=== PATIENT | female | born 1955 | race Caucasian/White ===

== ENCOUNTER → 2017-09-19 14:49 | Outpatient (CLI) | payer BC, SELFPAY ==
[2017-09-19 16:01] LABS: AST(SGOT) 19 U/L (15-37); Alanine Aminotransfer ALT/SGPT 27 U/L (13-56); Albumin, Serum 3.7 g/dL (3.2-5.0); Alkaline Phosphatase 83 U/L (45-117); Anion Gap 7 (5-15); BUN 14 mg/dL (7-18); BUN/Creat Ratio 19.9 RATIO (10-20); Calcium,Total 8.8 mg/dL (8.5-10.1); Chloride 102 mmol/L (98-107); Cholesterol 268 mg/dL (200); EST Glomerular Filtration Rate 90 mL/min (>60); Est Glom Filt Rate - Afr Amer 109 mL/min (>60); Globulin 3.7 g/dL (2.2-4.2); Glucose 81 mg/dL (74-106); High Density Lipoprotein 56 mg/dL; Potassium 3.6 mmol/L (3.5-5.1); Protein, Total 7.4 g/dL (6.4-8.2); Sodium Level 139 mmol/L (136-145); Thyroid Stim Hormone (TSH) 4.16 uIU/mL (0.358-3.74); Triglycerides 163 mg/dL; Very Low Density Lipoprotein 33 mg/dL (5-40)
[2017-09-19 16:15] LABS: Vitamin D,25 Hydroxy 24.5 ng/mL (19.95-100.01)
== END ==
DX: E03.9 Hypothyroidism, unspecified (principal); E55.9 Vitamin D deficiency, unspecified; E78.5 Hyperlipidemia, unspecified
CPT/HCPCS: 36415; 80053; 80061; 82306; 84443

== ENCOUNTER → 2017-10-29 15:48 | Outpatient (CLI) | payer BC, SELFPAY | DX: R69 Illness, unspecified (principal) ==

== ENCOUNTER → 2017-11-16 11:21 | Outpatient (CLI) | payer BC, SELFPAY ==
[2017-11-16 13:28] LABS: AST(SGOT) 22 U/L (15-37); Alanine Aminotransfer ALT/SGPT 34 U/L (13-56); Albumin, Serum 3.6 g/dL (3.2-5.0); Alkaline Phosphatase 87 U/L (45-117); Anion Gap 9 (5-15); BUN 18 mg/dL (7-18); BUN/Creat Ratio 26.4 RATIO (10-20); Calcium,Total 8.7 mg/dL (8.5-10.1); Chloride 106 mmol/L (98-107); Cholesterol 166 mg/dL (200); Creatinine, Serum 0.68 mg/dL (0.55-1.02); EST Glomerular Filtration Rate 93 mL/min (>60); Est Glom Filt Rate - Afr Amer 113 mL/min (>60); Globulin 3.5 g/dL (2.2-4.2); Glucose 98 mg/dL (74-106); High Density Lipoprotein 37 mg/dL; Protein, Total 7.1 g/dL (6.4-8.2); Sodium Level 142 mmol/L (136-145); Thyroid Stim Hormone (TSH) 2.22 uIU/mL (0.358-3.74); Triglycerides 168 mg/dL; Very Low Density Lipoprotein 34 mg/dL (5-40)
== END ==
DX: Z00.00 Encounter for general adult medical examination without abnormal findings (principal)
CPT/HCPCS: 36415; 80053; 80061; 84443

== ENCOUNTER → 2018-01-26 07:38 | Outpatient (CLI) | payer BC, SELFPAY ==
--- NOTE | 2018-01-26 07:39 | BI_ITS ---
MAMMOGRAPHY - BILATERAL SCREENING REASON FOR EXAM: Female, 62 years old. Routine annual screening examination. PERTINENT HISTORY: Non-contributory. TECHNIQUE: Digital bilateral breast miguel (3D mammographic acquisition) in the CC and MLO projections. 2-D mediolateral oblique (MLO) and craniocaudad (CC) views of both breasts were obtained. CAD: Full Field Digital Mammography with Computer Added Detection was performed. COMPARISON: Comparison is made with prior study dated January 11, 2017 and January 11, 2016. FINDINGS: Breast Composition: The breasts are almost entirely fatty. There are no dominant masses or suspicious calcifications. Stable bilateral benign appearing axillary lymph nodes. No other significant abnormalities are identified. There has been no significant change since the prior study. BI/SCREENING MAMM (CAD), BILAT IMPRESSION: Stable bilateral screening mammogram. Yearly follow-up mammogram recommended. (A) ASSESSMENT CATEGORY: BIRADS Category 2: Benign. A letter regarding these results will be sent to the patient by the facility within 30 days. Approximately 10% of breast cancers are not detected by mammography. A normal mammogram should not delay biopsy of a clinically suspicious abnormality. [id number] Electronically Signed: Dony Olivo MD at 8:17 EDT Tel [phone], Service support ,
== END ==
DX: Z12.31 Encounter for screening mammogram for malignant neoplasm of breast (principal)
CPT/HCPCS: 77063; 77067

== ENCOUNTER → 2018-11-08 08:35 | Outpatient (CLI) | payer BC, SELFPAY ==
[2018-11-08 09:33] LABS: Absolute Lymphocyte Count 2.53 X10^3/ul (0.83-4.51); Absolute Neutrophil Count 7.2 X10^3/uL (2.0-7.7); Basophil# 0.02 X10^3/uL; Basophil% 0.2 % (0-1); Eosinophil# 0.31 X10^3/uL; Eosinophils% 2.9 % (0-5); Hematocrit 44.3 % (37-47); Hemoglobin 14.7 g/dl (12.0-15.0); Lymphocyte # 2.53 X10^3/ul (4.0); Lymphocyte % 23.5 % (19-41); Mean Corp Hgb Conc 33.2 g/gl (32-36); Mean Corpuscular Hgb 29.4 pg (27.0-32.0); Mean Corpuscular Volume 88.6 fL (81-99); Mean Platelet Vol. 11.7 fl (6.2-12.0); Monocyte# 0.68 X10^3/uL; Monocyte% 6.3 % (0-10); Neutrophil # 7.19 X10^3/uL (2.7-7.7); Neutrophil % 66.9 % (47-70); Platelet Count 222 K/mm3 (150-450); RBC Distribution Width CV 13.1 % (11.6-14.6); RBC Distribution Width SD 42.2 fl (35.1-43.9); White Blood Count 10.8 K/mm3 (4.4-11.0)
[2018-11-08 09:36] LABS: POSITIVE COUNT NO; POSITIVE DIFFERENTIAL NO; POSITIVE MORPHOLOGY NO
[2018-11-08 10:10] LABS: Vitamin D,25 Hydroxy 13.3 ng/mL (29.95-100.01)
[2018-11-08 10:15] LABS: ALB/GLOB Ratio 1.2 RATIO (0.9-2.4); AST(SGOT) 27 U/L (15-37); Alanine Aminotransfer ALT/SGPT 34 U/L (13-56); Albumin, Serum 3.8 g/dL (3.2-5.0); Alkaline Phosphatase 90 U/L (45-117); Anion Gap 5 (5-15); BUN 12 mg/dL (7-18); BUN/Creat Ratio 17.9 RATIO (10-20); Calcium,Total 8.9 mg/dL (8.5-10.1); Chloride 106 mmol/L (98-107); Cholesterol 158 mg/dL (200); Creatinine, Serum 0.67 mg/dL (0.55-1.02); EST Glomerular Filtration Rate 95 mL/min (>60); Est Glom Filt Rate - Afr Amer 114 mL/min (>60); Globulin 3.3 g/dL (2.2-4.2); Glucose 114 mg/dL (74-106); High Density Lipoprotein 44 mg/dL; Potassium 4.2 mmol/L (3.5-5.1); Protein, Total 7.1 g/dL (6.4-8.2); Sodium Level 140 mmol/L (136-145); Thyroid Stim Hormone (TSH) 1.62 uIU/mL (0.358-3.74); Triglycerides 94 mg/dL; Very Low Density Lipoprotein 19 mg/dL (5-40)
== END ==
DX: E55.9 Vitamin D deficiency, unspecified (principal); R23.8 Other skin changes; E78.5 Hyperlipidemia, unspecified; E03.9 Hypothyroidism, unspecified
CPT/HCPCS: 36415; 80053; 80061; 82306; 84443; 85025

== ENCOUNTER → 2019-02-11 | Outpatient (CLI) | payer BC, SELFPAY ==
--- NOTE | 2019-02-11 15:53 | BI_ITS ---
MAMMOGRAPHY - BILATERAL SCREENING REASON FOR EXAM: Female, 63 years old. Routine annual screening examination. PERTINENT HISTORY: Non-contributory. TECHNIQUE: Digital bilateral breast saba (3D mammographic acquisition) in the CC and MLO projections. 2-D mediolateral oblique (MLO) and craniocaudad (CC) views of both breasts were obtained. CAD: Full Field Digital Mammography with Computer Added Detection was performed. COMPARISON: Comparison is made with prior study dated January 26, 2018 and January 11, 2017. FINDINGS: Breast Composition: The breasts are almost entirely fatty. There are no dominant masses or suspicious calcifications. Stable benign-appearing bilateral axillary lymph nodes. No other significant abnormalities are identified. There has been no significant change since the prior study. BI/SCREEN MAMM (CAD) W/SABA BILAT IMPRESSION: Stable bilateral screening mammogram. Yearly follow-up mammogram recommended. (A) ASSESSMENT CATEGORY: BIRADS Category 2: Benign. A letter regarding these results will be sent to the patient by the facility within 30 days. Approximately 10% of breast cancers are not detected by mammography. A normal mammogram should not delay biopsy of a clinically suspicious abnormality. [id number] Electronically Signed: Dony Olivo, at 8:44 EDT , Service support ,
== END | disposition home or self-care (01) ==
LOC: OPBI 15:51
DX: Z12.31 Encounter for screening mammogram for malignant neoplasm of breast (principal)
CPT/HCPCS: 77063; 77067

== ENCOUNTER → 2019-05-02 15:12 | Outpatient (CLI) | payer BC, SELFPAY ==
--- NOTE | 2019-05-02 16:00 | MRI_ITS ---
HISTORY: heel spur, plantar fascitis EXAMINATION: MR left Rearfoot W/O Contrast TECHNIQUE: Multiplanar and multisequence MR images of the left hindfoot IV Contrast dosage and agent: None. COMPARISON: None FINDINGS: Plantar fasciitis with mild thickening of the medial plantar fascia which maintains low signal on T2 W and without fascial tearing. Additional fasciitis of the lateral plantar fascia which shows thickening, moderate irregularity, and mildly heterogenous signal as seen with partial tearing. Generalized soft tissue edema of the plantar heel pad, more so medially. No abscess or gas collections identified. Bones: Small plantar calcaneal spur with mild reactive edema of the posterior calcaneal tuberosity including the plantar spur region. No fracture or osteomyelitis identified. Small osteochondral lesion of the medial talar dome. Normal Achilles, posterior tibial, peroneal, and anterior extensor tendons. No joint effusion or bursitis. IMPRESSI 1. Left foot plantar fasciitis of both the medial and lateral fascial bundles accompanied by posterior calcaneal mild reactive marrow edema together with plantar heel pad soft tissue edema, more so medially. 2. Small plantar calcaneal spur. 3. Small chronic appearing osteochondral lesion of the medial talar dome. These lesions are typically posttraumatic in etiology. at 0124 Reported and signed by: Sarkis Louis MD Electronically Signed: Sarkis Louis, at 1:23 EDT Tel , Service support , MRI/Lower Ext/No Jt/w/o
== END ==
PROVIDERS: Referring Provider Podiatrist; Visit Provider Podiatrist
DX: M72.2 Plantar fascial fibromatosis (principal); M77.32 Calcaneal spur, left foot
CPT/HCPCS: 73718

== ENCOUNTER → 2019-06-06 16:36 | Outpatient (CLI) | payer BC, SELFPAY ==
--- NOTE | 2019-06-06 18:15 | MRI_ITS ---
STUDY: MR LOWER EXTREMITY NONJOINT WITHOUT CONTRAST RIGHT REASON FOR EXAM: Female, 63 years old. Right plantar fasciitis, heel spur. TECHNIQUE: Multiple planar acquisitions were performed utilizing routine protocols on a 1.5 Jessica magnet. COMPARISON: 05/02/2019. FINDINGS: Marrow edema in the posterior, inferior calcaneus consistent with plantar fasciitis. There is a moderate heel spur with marrow edema. There is edema in the plantar soft tissues. No collection. There is mild edema within the plantar fascia laterally. There is no high-grade tear. Mild marrow edema in the navicular bone is decreased compared to the prior study. Mild edema in the medial cuneiform consistent with degenerative change. Marrow signal is otherwise normal. The Achilles, peroneus, extensor and flexor tendons are intact with no tendinosis or tear. No ankle or subtalar joint effusions. No soft tissue mass or cystic lesion. MRI/Lower Ext/No Jt/w/o IMPRESSION: 1. Mild plantar fascia with no high-grade tear. 2. Mild marrow edema in the navicular and medial cuneiform bones, consistent with degenerative changes. Electronically Signed: Kenyetta Rene MD at 22:20 EST Tel , Service support ,
== END ==
PROVIDERS: Referring Provider Podiatrist; Visit Provider Podiatrist
DX: M72.2 Plantar fascial fibromatosis (principal); M77.31 Calcaneal spur, right foot
CPT/HCPCS: 73718

== ENCOUNTER → 2019-06-23 15:57 | Outpatient (CLI) | payer BC, SELFPAY ==
[2019-06-23 17:59] LABS: Absolute Lymphocyte Count 3.54 X10^3/uL (0.83-4.51); Absolute Neutrophil Count 8.5 X10^3/uL (2.0-7.7); Basophil# 0.06 X10^3/uL; Basophil% 0.5 % (0-1); Eosinophil# 0.34 X10^3/uL; Eosinophils% 2.6 % (0-5); Hematocrit 45.9 % (37-47); Hemoglobin 14.7 g/dL (12.0-15.0); Lymphocyte # 3.54 X10^3/ul (4.0); Lymphocyte % 26.9 % (19-41); Mean Corpuscular Hgb 28.7 pg (27.0-32.0); Mean Corpuscular Volume 89.6 fL (81-99); Monocyte# 0.73 X10^3/uL; Monocyte% 5.5 % (0-10); NRBC Flagged by Analyzer 0 % (0-5); Neutrophil # 8.45 X10^3/uL (2.7-7.7); Platelet Count 242 K/mm3 (150-450); RBC Distribution Width CV 12.7 % (11.6-14.6); RBC Distribution Width SD 41.9 fl (35.1-43.9); Red Blood Count 5.12 M/mm3 (4.2-5.4); White Blood Count 13.2 K/mm3 (4.4-11.0)
[2019-06-23 18:04] LABS: ALB/GLOB Ratio 1.2 RATIO (0.9-2.4); AST(SGOT) 22 U/L (15-37); Alanine Aminotransfer ALT/SGPT 30 U/L (13-56); Albumin, Serum 4.1 g/dL (3.2-5.0); Alkaline Phosphatase 96 U/L (45-117); Anion Gap 7 (5-15); BUN 14 mg/dL (7-18); BUN/Creat Ratio 17.4 RATIO (10-20); Calcium,Total 9.3 mg/dL (8.5-10.1); Chloride 103 mmol/L (98-107); EST Glomerular Filtration Rate 77 mL/min (>60); Est Glom Filt Rate - Afr Amer 93 mL/min (>60); Globulin 3.5 g/dL (2.2-4.2); Glucose 71 mg/dL (74-106); Potassium 3.7 mmol/L (3.5-5.1); Protein, Total 7.6 g/dL (6.4-8.2); Sodium Level 139 mmol/L (136-145)
== END ==
PROVIDERS: Visit Provider Family Medicine
DX: Z01.818 Encounter for other preprocedural examination (principal)
CPT/HCPCS: 36415; 80053; 85025

== ENCOUNTER 2019-06-27 05:50 | Day surgery (SDC) | payer BC, SELFPAY ==
[2019-06-27 06:45] VITALS: BP 114/76; PULSE 78; RESP 15; TEMP 36.1; O2SAT 99; BMI 25.3
[2019-06-27] MEDS: Lactated Ringers 1,000 ML 100 ML IV (06:57)
--- NOTE | 2019-06-27 07:23 | DCINST_ITS ---
Discharge Diet: Light diet - advance as tolerated Discharge Activity: May Not Drive, Use Walker Weight Bearing Status: Toe touch weight bearing Keep extremity elevated above heart level: Operative Extremity - Keep both feet elevated with pillows at or above chest level for at least 50 minutes of every hour Call your doctor if your incision/area has: Continuous Slow Oozing, Sudden Increased Bleeding, Foul Smelling Discharge Call your doctor if you observe: Fever of 101 or Higher, Shortness of breath, Chest pain, Increased palpitations (irregular heartbeat), Calf discomfort, Uncontrolled pain Cleanse incision/area with: Do not get Incision Wet, Keep Dressing Clean & Dry Allergies/Adverse Reactions: Allergies No Known Allergies Allergy (Verified 06/23/19 15:08) Medications to take at Discharge Atorvastatin Calcium [Lipitor] 20 mg PO QHS 06/23/19 Ergocalciferol [Vitamin D] 50,000 unit PO Q7D 06/23/19 Levothyroxine [Synthroid] 75 mcg PO DAILY 06/23/19 Hydrocodone/Acetaminophen [[place] 5-325 Tablet] 1 - 2 tab PO Q6H PRN PRN 3 Days #20 tab 06/27/19 The following prescriptions were given: Hydrocodone/Acetaminophen [[place] 5-325 Tablet] 1 - 2 tab PO Q6H PRN PRN 3 Days #20 tab PRN Reason: Pain Score 1-10/10 Prescription Printed Primary Care Physician: Kiana Hall DO [Primary Care Provider] - Test Results: Test results from this visit will be discussed in further detail at your follow- up appointment, if applicable. Please Follow Up With: Billy Vick DPM When: 1 week, sooner if needed
[2019-06-27] MEDS: Cefazolin 2 GM in 0.9% Normal Saline 100 ML IV (07:28)
--- NOTE | 2019-06-27 07:32 | RAD_ITS ---
STUDY: X-RAY - RIGHT CALCANEUS REASON FOR EXAM: Female, 63 years old. TECHNIQUE: 2 view(s) of the calcaneus were obtained. COMPARISON: None. FINDINGS: There has been resection of the plantar heel spur from the right side. RAD/Calcaneus min 2 Views IMPRESSION: Normal x-ray examination of the calcaneus. Electronically Signed: Sukumar Cummings, at 9:51 EST Tel , Service support ,
--- NOTE | 2019-06-27 07:32 | RAD_ITS ---
STUDY: X-RAY - LEFT CALCANEUS REASON FOR EXAM: Female, 63 years old. TECHNIQUE: view(s) of the calcaneus were obtained. COMPARISON: None. FINDINGS: There is large plantar heel spur on the left. A metallic probe is directly to the area this was done in the OR. RAD/Calcaneus min 2 Views IMPRESSION: Normal x-ray examination of the calcaneus. Electronically Signed: Sukumar Cummings, at 9:54 EST Tel , Service support ,
[2019-06-27] MEDS: Bupivacaine Mpf 0.5% 30 ML VIAL (08:20)
--- NOTE | 2019-06-27 08:29 | RAD_ITS ---
STUDY: X-RAY - RIGHT CALCANEUS REASON FOR EXAM: Female, 63 years old. TECHNIQUE: view(s) of the calcaneus were obtained. COMPARISON: None. FINDINGS: There has been resection of the plantar heel spur from the right side RAD/Calcaneus min 2 Views IMPRESSION: Normal x-ray examination of the calcaneus. Electronically Signed: Sukumar Cummings, at 9:51 EST Tel , Service support ,
--- NOTE | 2019-06-27 08:30 | PCM.OPRPT ---
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 Shila Fernando Type of Anesthesia:: Local MAC Specimen's removed: None Estimated Blood Loss (mL): 1mL Description of Procedure: Indications: This is a 63 year old female with chronic plantar heel pain - plantar fasciotomy and infracalcaneal spurs. Pain persists and limiting activities despite months of nonsurgical care. MRIs were obtained which confirmed plantar fasciitis and infracalcaneal spurs bilateral. Due to continue chronic pain and symptoms she wanted to proceed with bilateral plantar fasciotomy and resection of infracalcaneal spurs. This was discussed with her in detail. Reviewed procedures, possible benefits vs risks, goals, expectations and estimated healing time. She expressed understanding and agreement, she elected to proceed forward. The consent forms were reviewed with her, and she freely signed them. All of her questions were answered. No guarantees were given nor implied. Operative Procedure: The patient was brought back into the operating room and was placed on the operating room table in the supine position. She was carefully secured to the operating room table with a safety belt around the waist. A time out was performed and the patient was properly identified and the surgical plan was confirmed. The patient received 2g of IV Cefazolin for antibiotic prophylaxis. A well padded pneumatic tourniquet was applied around the patient's left ankle and right ankle. The patient received MAC anesthesia per the anesthesiologist. After the overlying skin was cleansed with 70% Isopropyl alcohol a total of 20mL of given as a local nerve block around the plantar heel bilateral (10mL used on right and 10mL used on left). The right and left lower extremities were scrubbed,prepped, draped in the usual aseptic fashion. A time out was performed in which the patient was properly identified and the surgical plan confirmed. The left foot was exsanguinated using an Esmarch bandage and the left ankle pneumatic tourniquet was inflated to 250mmHg. The infracalcaneal spur was visualized on intra operative fluoroscopy, image was saved. A skin incision was made to the medial hindfoot at the level of the plantar fascia and infracalcaneal spur, careful dissection was completed down through the subcutaneous tissue layer. A plane was created superiorly and inferiorly around the plantar fascia and the medial 50% of the plantar fascia was released via a plantar fasciotomy. The infracalcaneal spur was felt, and was carefully resected using a powered rasp. Resection of the infracalcaneal spur was confirmed using intraoperative fluoroscopy. Images pre and post infracalcaneal spur resection were saved. The site was flushed out with copious amounts of normal saline solution. The skin was reapproximated using 3-0 Nylon. The pneumatic tourniquet was deflated, and there was immediate return of warmth and perfusion to the foot and to all toes on the foot with normal temperature gradient and CFT < 2 seconds to all toes. Total tourniquet was was 14 minutes. 3mL of 0.5% Bupivacaine was given as a local block around the surgical site for further post op pain control. Hemostasis was achieved. A dressing was applied which consisted of Betadine soaked adaptic, 4x4 gauze, Kerlix and mati bandage. The right foot was exsanguinated using an Esmarch bandage and the right ankle pneumatic tourniquet was inflated to 250mmHg. The infracalcaneal spur was visualized on intra operative fluoroscopy, image was saved. A skin incision was made to the medial hindfoot at the level of the plantar fascia and infracalcaneal spur, careful dissection was completed down through the subcutaneous tissue layer. A plane was created superiorly and inferiorly around the plantar fascia and the medial 50% of the plantar fascia was released via a plantar fasciotomy. The infracalcaneal spur was felt, and was carefully resected using a powered rasp. Resection of the infracalcaneal spur was confirmed using intraoperative fluoroscopy. Images pre and post infracalcaneal spur resection were saved. The site was flushed out with copious amounts of normal saline solution. The skin was reapproximated using 3-0 Nylon. The pneumatic tourniquet was deflated, and there was immediate return of warmth and perfusion to the foot and to all toes on the foot with normal temperature gradient and CFT < 2 seconds to all toes. Total tourniquet was was 16 minutes. 5mL of 0.5% Bupivacaine was given as a local block around the surgical site for further post op pain control. Hemostasis was achieved. A dressing was applied which consisted of Betadine soaked adaptic, 4x4 gauze, Kerlix and mati bandage. The patient tolerated the above operative procedure well at the anesthesia well with no complication. The patient was transported to the recovery room with vital signs stable and in good condition. Post operative orders were placed. Post operative instructions were reviewed with her. No weightbearing to the heels right and left foot, keep feet elevated for at least 50 minutes of every hour, keep dressing clean, dry and intact. Prescription for [place] 5mg/325mg was prescribed: 1-2 tabs PO q 6 hours PRN pain for pain control. Post operative xrays right and left calcaneal views were obtained and reviewed - confirmed infracalcaneal spur resection, no post operative complications. She is to follow up with me within 1 week or sooner if needed. Grafts/Implants Used: None - Complications None
[2019-06-27 08:35] VITALS: BP 114/76; BP 125/84; PULSE 71; RESP 16; TEMP 36.2; O2SAT 98
[2019-06-27 08:40] VITALS: BP 114/76; BP 118/84; PULSE 71; RESP 16; O2SAT 99
[2019-06-27 08:45] VITALS: BP 114/76; BP 134/87; PULSE 70; RESP 16; O2SAT 97
[2019-06-27 08:50] VITALS: BP 114/76; BP 130/86; PULSE 73; RESP 16; TEMP 36.1; O2SAT 97
--- NOTE | 2019-06-27 09:02 | RAD_ITS ---
STUDY: X-RAY - LEFT CALCANEUS REASON FOR EXAM: Female, 63 years old. TECHNIQUE: view(s) of the calcaneus were obtained. COMPARISON: None. FINDINGS: There has been resection of the plantar heel spur from the left side. RAD/Calcaneus min 2 Views IMPRESSION: Normal x-ray examination of the calcaneus. Electronically Signed: Sukumar Cummings, at 9:52 EST Tel , Service support ,
[2019-06-27 09:33] VITALS: BP 114/76
== END 2019-06-27 09:49 | disposition home or self-care (01) ==
LOC: SDC 05:50 → AC 05:51
PROVIDERS: Referring Provider Podiatrist; Visit Provider Podiatrist
PROC: (CPT 28119; principal; 2019-06-27 07:15)
DX: M72.2 Plantar fascial fibromatosis (principal); M77.31 Calcaneal spur, right foot; M77.32 Calcaneal spur, left foot; E03.9 Hypothyroidism, unspecified; E78.5 Hyperlipidemia, unspecified; G25.81 Restless legs syndrome; Z86.2 Personal history of diseases of the blood and blood-forming organs and certain disorders involving the immune mechanism; Z78.0 Asymptomatic menopausal state; Z79.899 Other long term (current) drug therapy; F17.210 Nicotine dependence, cigarettes, uncomplicated
CPT/HCPCS: 01480; 28119; 73650; 76000; J7120

== ENCOUNTER 2019-09-08 07:00 | Outpatient (RCR) | payer BC, SELFPAY ==
--- NOTE | 2019-08-12 08:07 | HP.PTEVAL ---
Patient's Visit Information ANALI REYES is a 63 year old F referred to Physical Therapy by Billy Vick DPM with a diagnosis of Left and Right Plantar Fasciotomy and Heel Spur Resection. Date of Evaluation: 08/12/19 Physical Therapist: Feli Hawkins DPT - Visit Plan Frequency: 2x /Week Duration: 4 Weeks Plan: Focus on LE flexibility, ROM an strength- manual and modality of US. 08/12:Ankle rom, gastroc stretch, ball under foot gentle massage - Subjective Findings: Patient reports that she had bilateral s/p plantar fasciotomy and heel spur resection on 06/27/[address] Vick. Patient reports that the more she does the more she pays later. She usually walks her dogs and has been unable. Her left is worse than the right. Worst: 8/10 Agg: during the night due to being up on them all day. In the morning when she gets up she uses a walker. Does do some stretching at night. Eases: rubbing them Best: 3/10 Patient reports throbbing. Pain is located along the heel and arch of the foot. No radiating pain. Both sides are still numb because of heeling from the inside out. No x-rays or MRI since surgery. Sleep: disturbed. 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 Had a left TKR in 2009 no other LE injuries. PMHx: thyroid Meds: thyroid medication, cholesterol medication. - Objective Posture: FH, RS, increased kyphosis. Gait: antlagic- decreased stance bilaterally- poor heel/toe pattern bilaterally- no AD. HR/TR: able with UE A and reports pain bilaterally. SLS: 3 sec on right and 2 seconds on left with pain. ROM: Left: DF: neutral, PF: 30 degrees, Inver: 30 degrees with pain ER: 10 degrees Right: DF: 5 degrees, PF: 50 degrees, Inver: 30 degrees, Ever: 20 degrees with discomfort. Strength: Knee: 5/5, Ankle: 4/5 with pain. Flex: Gastroc: severe, Soleus: severe - Goals Goal 1:: Patient will be I with HEP and progression Goal Time Frame: 4-6 Weeks Goal 2:: Patient will ambulate >300 feet with a normalized gait pattern Goal Time Frame: 4-6 Weeks Goal 3:: Patient will SLS for 15 sec without LOB bilaterally Goal Time Frame: 4-6 Weeks Goal 4:: Patient will sleep through the night for 1 week Goal Time Frame: 4-6 Weeks - Rehabilitation Potential Physical Therapy Diagnosis: Patient presents with hypomobility-she has decreased ROM, strength, flex and muscular endurance leading to abnormal gait and decreased ability to perform ADL's. Rehabilitation Potential: Fair - Anticipated Interventions Patient/Client Instruction: Educate patient on: Benefits of Fitness Program Therapeutic Exercise to Include: Strength training, Endurance training, Balance training, Coordination, Agility training, Body mechanics, Postural training, Flexibilty training, Gait and locomotor training, Passive ROM, Active ROM, Dynamic Lumbar Stabilization For the Purpose of:: To improve muscle performance and motor function TENS: Yes Cryotherapy (ice pack, ice massage): Yes Thermo therapy (hot pack): Yes Ultrasound (thermal/non thermal): Yes For the Purpose of:: To decrease swelling/inflammation Thank you for the opportunity to evaluate your patient. For Medicare and Medicare HMO plans, please review the plan of care and approve it. It will need to be FAXED BACK to us at [phone] for Medicare purposes. For Medicare only, by signing this I certify the plan of care. Please let me know if there are questions or concerns regarding this plan of care. Physician Signature: Date:
--- NOTE | 2019-09-08 07:13 | HP.PTDCSUM ---
HP - PT D/C Summary It has been my pleasure to treat ANALI REYES under orders from Billy Vick DPM, for the diagnosis of Left and Right Plantar Fasciotomy and Heel Spur Resection for a total of 8 visit(s). Discharge Date: Please see the following information for a summary of their discharge status. - Subjective Subjective: Patient reports that she is better- she is wearing her inserts all the time. She is walking her dogs some but she is not quite better yet. She goes back to MD the and is thinking if everything is going well she will return to work at that point. She saw him a few weeks ago he gave her cortisone pills but she does not feel different. The left is still worse than the right- because the heel spur was larger. Does feel that she can continue the therapy at home. - Overall Improvement % Improvement: 70 - Objective Objective/Function: Posture: fair throughout session in hard back and no back. SLS: 10 sec each side with increase muscle activation. HR/TR: able but reports discomfort with TR on the left. Gait: no signifiant deviation. Observation: decrease pes planus in shoes with orthotics. ROM: WFL in all planes. Strength:4+/5 throughout with pain on left inver/ever. Flex: Gastroc: moderate bilaterally Soleus: mild. Palapation: increased crepetis on left vs right. - Goals Goal 1:: Patient will be I with HEP and progression Goal Progress: Goal Met Goal 2:: Patient will ambulate >300 feet with a normalized gait pattern Goal Progress: Goal Met Goal 3:: Patient will SLS for 15 sec without LOB bilaterally Goal Progress: Goal Met Goal 4:: Patient will sleep through the night for 1 week Goal Progress: Goal Met - Plan Plan: Discharge to HEP - D/C Information If there are questions or concerns regarding this patient's physical therapy, please feel free to call me at [phone]. Thank you for the referral of this patient. Sincerely, Feli Hawkins DPT
== END 2019-09-08 19:00 | disposition home or self-care (01) ==
LOC: PT 07:00
PROVIDERS: Referring Provider Podiatrist; Visit Provider Podiatrist
DX: Z98.890 Other specified postprocedural states (principal)
CPT/HCPCS: 97035; 97110; 97140; 97161; 97164

== ENCOUNTER → 2019-10-01 11:40 | Outpatient (CLI) | payer BC, SELFPAY ==
[2019-10-01 13:13] LABS: Vitamin D,25 Hydroxy 36.8 ng/mL
[2019-10-01 13:16] LABS: Thyroid Stim Hormone (TSH) 1.89 uIU/mL (0.358-3.74)
== END ==
DX: E03.9 Hypothyroidism, unspecified (principal); E55.9 Vitamin D deficiency, unspecified
CPT/HCPCS: 36415; 82306; 84443

== ENCOUNTER → 2020-01-05 | Outpatient (CLI) | payer BC, SELFPAY ==
--- NOTE | 2020-01-05 10:22 | RAD_ITS ---
HISTORY: CHRONIC COUGH WHEN LAYING DOWN ADDITIONAL HISTORY: None provided. COMPARISON: None TECHNIQUE: Frontal and lateral chest radiographs. Number of images including paperwork: 2 FINDINGS: LUNGS AND PLEURA: No consolidation, mass or pleural effusion. CARDIAC SILHOUETTE: Unremarkable. MEDIASTINUM AND KENDELL: Unremarkable. UPPER ABDOMEN: Unremarkable. SKELETON AND SOFT TISSUES: No acute findings. OTHER DEVICES AND HARDWARE: None. RAD/Chest PA and Lateral IMPRESSION: No acute cardiopulmonary abnormality. at 0802 Reported and signed by: Divya Hodge MD Electronically Signed: Divya Hodge MD at 8:02 EDT Tel , Service support ,
== END | disposition home or self-care (01) ==
LOC: RAD.FUTURE 10:18
DX: R05 Cough (principal)
CPT/HCPCS: 71046

== ENCOUNTER → 2020-02-13 15:40 | Outpatient (CLI) | payer BC, SELFPAY ==
--- NOTE | 2020-02-13 15:42 | BI_ITS ---
MAMMOGRAPHY - BILATERAL SCREENING 3-D TOMOSYNTHESIS REASON FOR EXAM: Female, 64 years old. Routine screening PERTINENT HISTORY: NO FM HX , LT LIQ BRUISE X 1 WK FROM WORK. TECHNIQUE: 2-D mammograms and 3-D Tomosynthesis of the breast (s) were performed. CAD was performed. COMPARISON: 02/11/2019 FINDINGS: The breast composition is almost entirely fat. Scattered benign calcifications are seen. No dense spiculated masses or suspicious microcalcifications are identified. No architectural distortion is identified. There is no skin thickening or retraction. Stable benign axillary lymph nodes. There has been no significant change since the prior study. BI/SCREEN MAMM (CAD) W/SABA BILAT IMPRESSION: No mammographic signs of malignancy. Routine yearly mammograms recommended. ASSESSMENT CATEGORY: BIRADS Category 1: Negative. A letter regarding these results will be sent to the patient by the facility within 30 days. FOLLOW UP RECOMMENDATION: Yearly follow up mammogram recommended. (A) Approximately 10% of breast cancers are not detected by mammography. A normal mammogram should not delay biopsy of a clinically suspicious abnormality. Electronically Signed: Kalen Rabago MD at 10:52 EDT , Service support ,
== END ==
DX: Z12.31 Encounter for screening mammogram for malignant neoplasm of breast (principal)
CPT/HCPCS: 77063; 77067

== ENCOUNTER → 2020-02-17 12:32 | Outpatient (CLI) | payer BC, SELFPAY ==
--- NOTE | 2020-02-17 14:02 | PFTCOMP_ITS ---
COMPLETE PULMONARY FUNCTION TEST INTERPRETATION Brief HPI: Patient is a 64 year old female, currently under the care of Kiana Hall, who presents to [facility] for complete pulmonary function tests secondary to diagnosis of chronic cough. Respiratory therapist reports good effort and reproducible results. Interpretation: Forced expiration spirometry shows a moderate large airways obstructive ventilatory defect with an FEV1 of 63% predicted. There is no significant bronch odilator response by strict ATS criteria. Spirograms are of good quality and plateau slowly, indicating slowly emptying areas of the lungs. The respiratory flow volume loop shows decreased expiratory flow rates at all lung volumes consistent with airway obstruction. Lung volumes by body plethysmography show a normal total lung capacity at 6.05 L, 111% predicted. FRC and RV are elevated out of proportion. Lung volume measurements are consistent with air-trapping. Diffusion capacity by carbon monoxide is at the lower limit of normal at 70% predicted. The airway resistance is elevated. No previous pulmonary function tests were available for review. Impression: Irreversible moderate large airways obstructive ventilatory defect with a symmetric reduction diffusion capacity, and a pattern consistent with COPD.
== END ==
DX: R05 Cough (principal)
CPT/HCPCS: 94060; 94726; 94729

== ENCOUNTER → 2020-04-15 15:48 | Outpatient (CLI) | payer BC, SELFPAY ==
[2020-04-15 16:27] LABS: Hematocrit 41.7 % (37-47); Hemoglobin 13.5 g/dL (12.0-15.0); Mean Corp Hgb Conc 32.4 g/dL (32-36); Mean Corpuscular Hgb 28.8 pg (27.0-32.0); Mean Corpuscular Volume 89.1 fL (81-99); Mean Platelet Vol. 11.5 fl (6.2-12.0); Platelet Count 243 K/mm3 (150-450); RBC Distribution Width CV 12.8 % (11.6-14.6); RBC Distribution Width SD 42.2 fl (35.1-43.9); Red Blood Count 4.68 M/mm3 (4.2-5.4); White Blood Count 11.6 K/mm3 (4.4-11.0)
[2020-04-15 16:52] LABS: Vitamin D,25 Hydroxy 54.9 ng/mL
[2020-04-15 16:54] LABS: ALB/GLOB Ratio 1.1 RATIO (0.9-2.4); AST(SGOT) 22 U/L (15-37); Alanine Aminotransfer ALT/SGPT 27 U/L (13-56); Albumin, Serum 3.8 g/dL (3.2-5.0); Alkaline Phosphatase 104 U/L (45-117); Anion Gap 6 (5-15); BUN 15 mg/dL (7-18); BUN/Creat Ratio 19.6 RATIO (10-20); Chloride 105 mmol/L (98-107); Cholesterol 154 mg/dL (200); Creatinine, Serum 0.77 mg/dL (0.55-1.02); EST Glomerular Filtration Rate 81 mL/min (>60); Est Glom Filt Rate - Afr Amer 98 mL/min (>60); Globulin 3.4 g/dL (2.2-4.2); Glucose 83 mg/dL (74-106); High Density Lipoprotein 40 mg/dL; Protein, Total 7.2 g/dL (6.4-8.2); Sodium Level 140 mmol/L (136-145); Thyroid Stim Hormone (TSH) 2.06 uIU/mL (0.358-3.74); Triglycerides 115 mg/dL; Very Low Density Lipoprotein 23 mg/dL (5-40)
== END ==
DX: E78.5 Hyperlipidemia, unspecified (principal); E03.9 Hypothyroidism, unspecified; J44.9 Chronic obstructive pulmonary disease, unspecified; E55.9 Vitamin D deficiency, unspecified
CPT/HCPCS: 36415; 80053; 80061; 82306; 84443; 85027

== ENCOUNTER → 2020-08-09 16:25 | Outpatient (CLI) | payer BC, SELFPAY ==
[2020-08-09 17:07] LABS: Anion Gap 5 (5-15); BUN 13 mg/dL (7-18); BUN/Creat Ratio 17.3 RATIO (10-20); Calcium,Total 9.1 mg/dL (8.5-10.1); Chloride 102 mmol/L (98-107); Creatinine, Serum 0.75 mg/dL (0.55-1.02); EST Glomerular Filtration Rate 83 mL/min (>60); Est Glom Filt Rate - Afr Amer 100 mL/min (>60); Glucose 81 mg/dL (74-106); Sodium Level 137 mmol/L (136-145); Uric Acid 5.7 mg/dL (2.6-6.0)
== END ==
PROVIDERS: Visit Provider Podiatrist
DX: M10.9 Gout, unspecified (principal)
CPT/HCPCS: 36415; 80048; 84550

== ENCOUNTER → 2020-10-30 10:24 | Outpatient (CLI) | payer BC, SELFPAY ==
[2020-10-30 11:13] LABS: Hematocrit 47.7 % (37-47); Hemoglobin 15.5 g/dL (12.0-15.0); Mean Corp Hgb Conc 32.5 g/dL (32-36); Mean Corpuscular Hgb 29.1 pg (27.0-32.0); Mean Corpuscular Volume 89.7 fL (81-99); Mean Platelet Vol. 11.8 fl (6.2-12.0); Platelet Count 255 K/mm3 (150-450); RBC Distribution Width CV 12.9 % (11.6-14.6); Red Blood Count 5.32 M/mm3 (4.2-5.4); White Blood Count 11.7 K/mm3 (4.4-11.0)
[2020-10-30 11:17] LABS: Vitamin D,25 Hydroxy 69.2 ng/mL
[2020-10-30 11:25] LABS: ALB/GLOB Ratio 1.1 RATIO (0.9-2.4); AST(SGOT) 23 U/L (15-37); Alanine Aminotransfer ALT/SGPT 31 U/L (13-56); Albumin, Serum 3.9 g/dL (3.2-5.0); Alkaline Phosphatase 95 U/L (45-117); Anion Gap 3 (5-15); BUN 16 mg/dL (7-18); BUN/Creat Ratio 21.9 RATIO (10-20); Calcium,Total 9.4 mg/dL (8.5-10.1); Chloride 105 mmol/L (98-107); Cholesterol 182 mg/dL (200); Creatinine, Serum 0.73 mg/dL (0.55-1.02); EST Glomerular Filtration Rate 85 mL/min (>60); Est Glom Filt Rate - Afr Amer 103 mL/min (>60); Globulin 3.7 g/dL (2.2-4.2); Glucose 98 mg/dL (74-106); High Density Lipoprotein 47 mg/dL; Potassium 4.3 mmol/L (3.5-5.1); Protein, Total 7.6 g/dL (6.4-8.2); Sodium Level 137 mmol/L (136-145); Thyroid Stim Hormone (TSH) 1.93 uIU/mL (0.358-3.74); Triglycerides 92 mg/dL; Very Low Density Lipoprotein 18 mg/dL (5-40)
== END ==
DX: E78.5 Hyperlipidemia, unspecified (principal); E03.9 Hypothyroidism, unspecified; E55.9 Vitamin D deficiency, unspecified
CPT/HCPCS: 36415; 80053; 80061; 82306; 84443; 85027

== ENCOUNTER → 2021-03-01 11:56 | Outpatient (CLI) | payer BC, SELFPAY ==
--- NOTE | 2021-03-01 11:59 | BI_ITS ---
MAMMOGRAPHY - BILATERAL SCREENING REASON FOR EXAM: Female, 65 years old. Routine annual screening examination. PERTINENT HISTORY: Screening TECHNIQUE: Digital bilateral breast saba (3D mammographic acquisition) in the CC and MLO projections. 2-D mediolateral oblique (MLO) and craniocaudad (CC) views of both breasts were obtained. CAD: Full Field Digital Mammography with Computer Added Detection was performed. COMPARISON: 02/13/2020 FINDINGS: Breast Composition: Fatty There are no dominant masses or suspicious calcifications. No other significant abnormalities are identified. BI/SCRN MAMM (CAD)W/SABA BILAT IMPRESSION: Stable bilateral screening mammogram. Yearly follow-up mammogram recommended. (A) ASSESSMENT CATEGORY: BIRADS Category 1: Negative. A letter regarding these results will be sent to the patient by the facility within 30 days. Approximately 10% of breast cancers are not detected by mammography. A normal mammogram should not delay biopsy of a clinically suspicious abnormality. [id number] Electronically Signed: Joseluis Banerjee DO at 14:00 EDT Tel , Service support ,
== END ==
DX: Z12.31 Encounter for screening mammogram for malignant neoplasm of breast (principal)
CPT/HCPCS: 77063; 77067

== ENCOUNTER → 2022-03-03 | Outpatient (CLI) | payer MEDICARE, SELFPAY ==
--- NOTE | 2022-03-03 08:59 | BI_ITS ---
MAMMOGRAPHY - BILATERAL SCREENING REASON FOR EXAM: Female, 66 years old. Routine annual screening examination. PERTINENT HISTORY: Non-contributory. TECHNIQUE: Digital bilateral breast saba (3D mammographic acquisition) in the CC and MLO projections. 2-D mediolateral oblique (MLO) and craniocaudad (CC) views of both breasts were obtained. CAD: Full Field Digital Mammography with Computer Added Detection was performed. COMPARISON: Comparison is made with prior study dated 03/01/2021 and 02/13/2020. FINDINGS: Breast Composition: The breasts are almost entirely fatty. There are no dominant masses or suspicious calcifications. Stable small benign appearing bilateral axillary nodes. No other significant abnormalities are identified. There has been no significant change since the prior study. BI/SCRN MAMM (CAD)W/SABA BILAT IMPRESSION: Stable bilateral screening mammogram. Yearly follow-up mammogram recommended. (A) ASSESSMENT CATEGORY: BIRADS Category 2: Benign. A letter regarding these results will be sent to the patient by the facility within 30 days. Approximately 10% of breast cancers are not detected by mammography. A normal mammogram should not delay biopsy of a clinically suspicious abnormality. [id number] Electronically Signed: Dony Olivo MD at 8:59 EDT ,
== END | disposition home or self-care (01) ==
LOC: OPBI 08:58
DX: Z12.31 Encounter for screening mammogram for malignant neoplasm of breast (principal)
CPT/HCPCS: 77063; 77067

== ENCOUNTER 2022-08-04 01:01 | Emergency (ER) | payer MEDICARE, SELFPAY ==
[2022-08-04 01:02] VITALS: PULSE 125; RESP 24; TEMP 36.3; O2SAT 95; BMI 29.8
[2022-08-04 01:05] VITALS: O2SAT 95
--- NOTE | 2022-08-04 01:24 | RAD_ITS ---
STUDY: X-RAY CHEST REASON FOR EXAM: Female, 66 years old. dyspnea TECHNIQUE: Frontal and lateral views of the chest. COMPARISON: None. FINDINGS: The lungs are clear and expanded. There is no demonstrated pleural abnormality. Normal size heart. Normal mediastinum and sabrina. Normal visualized pulmonary arteries. Normal visualized aortic arch and descending thoracic aorta. Normal visualized thoracic spine. Normal visualized ribs, clavicles, and shoulders. There is no demonstrated abnormality of the visualized soft tissue structures of the upper abdomen. RAD/Chest PA and Lateral IMPRESSION: Normal x-ray examination of the chest. Electronically Signed: García Sena MD at 2:25 EST ,
[2022-08-04 01:28] VITALS: PULSE 122; RESP 18; RESP 24; O2SAT 95
[2022-08-04] MEDS: Albuterol 2.5 MG/3 ML VIAL.NEB. INHALATION (01:28)
[2022-08-04] MEDS: Ipratropium/Albuterol Sulfate 3 ML AMPUL.NEB INHALATION (01:28)
[2022-08-04] MEDS: predniSONE 20 MG Tablet 60 MG PO (01:47)
--- NOTE | 2022-08-04 01:47 | CPS ---
x1 Albuterol given to pt. in ER as well
--- NOTE | 2022-08-04 02:54 | EX.ED.DYSGE1 ---
HPI History of Present Illness Chief Complaint: Shortness of Breath Narrative Narrative: Patient is a 66-year-old female with past medical history of smoking COPD not requiring supplemental oxygen and hypothyroidism. She states that this evening she began feeling short of breath and then became anxious and her shortness of breath worsened. She states that there has been no chest pain or diaphoresis and she denies any sick symptoms recently. She states that she has been walking around her house hoping her shortness of breath would improve but as it has persisted she presents for evaluation [facility] Medical History (Updated 08/04/22 @ 04:[address] Aiden Bryan, DO) COPD (chronic obstructive pulmonary disease) Home Medications atorvastatin 20 mg tablet 20 mg PO QHS 06/23/19 [History Last Taken Unknown] ergocalciferol (vitamin D2) 1,250 mcg (50,000 unit) capsule 50,000 unit PO Q7D 06/23/19 [History Last Taken Unknown] levothyroxine 75 mcg tablet 75 mcg PO DAILY 06/23/19 [History Last Taken 06/27/19 04:15] albuterol sulfate 90 mcg/actuation aerosol inhaler (Ventolin HFA) 1 - 2 puff inhalation Q4H PRN PRN Wheezing #1 device 08/04/22 [Rx Last Taken Unknown] prednisone 20 mg tablet 40 mg PO DAILY 5 days #10 tabs 08/04/22 [Rx Last Taken Unknown] Allergy/AdvReac Type Severity Reaction Status Date / Time No Known Allergies Allergy Verified 06/23/19 15:08 Surgical History (Updated 08/04/22 @ 01:07 by Shikha Higgins) H/O: hysterectomy Total knee replacement status Social History Smoking Status: Current every day smoker tobacco type: cigarettes ROS ROS ED Constitutional Constitutional ED: Denies chills or fever(s) ENT ENT ED: Denies rhinorrhea or sore throat Cardiovascular Cardiovascular: Denies chest pain Respiratory/Chest Respiratory/Chest: Reports dyspnea; Denies cough Gastrointestinal Gastrointestinal: Denies abdominal pain, diarrhea, nausea or vomiting Genitourinary Genitourinary ED: Denies dysuria Musculoskeletal Musculoskeletal: Denies myalgias Integumentary Denies rash Neurologic Neurologic: Denies headache(s) Psychiatric Psychiatric: Reports anxiety Hematologic/Lymphatic Hematologic/Lymphatic: Denies easy bleeding or easy bruising EXAM Physical Exam Const Vital Signs: 08/04/22 01:02 08/04/22 01:05 08/04/22 01:28 Temperature 97.4 F L Temperature Source Temporal Pulse Rate 125 H 122 H Respiratory Rate 24 H 18 Respiratory Effort Short of Breath Accessory Muscle Use Respiratory Depth Deep Respiratory Pattern Tachypnea Normal Blood Pressure Pulse Ox 95 Oxygen Delivery Method Room Air Room Air 08/04/22 01:28 08/04/22 03:07 Temperature Temperature Source Pulse Rate 82 Respiratory Rate 24 H 20 H Respiratory Effort Normal Non-Labored Short of Breath Respiratory Depth Shallow Respiratory Pattern Tachypnea Blood Pressure 156/87 H Pulse Ox 95 96 Oxygen Delivery Method Room Air Positive well nourished and well developed General Appearance ED: well developed HEENT Reports moist mucous membranes HEENT Narrative: No tongue or lip swelling no oral lesions no airway edema or compromise Eyes PERRL and EOMs intact bilaterally Neck supple and no JVD Resp Resp Narrative: Patient is tachypneic with diminished breath sounds and faint expiratory wheeze bilaterally in the bases but no nasal flaring or retractions or dyspnea with speech Cardio regular rhythm Rate: tachycardic and other Other Details: Radial pulses are plus 2 out of 4 bilaterally are equal and symmetric GI normal to inspection, nondistended, normoactive bowel sounds, non-tender and non-distended Auscultation: normoactive bowel sounds Palpation: soft Extremity normal to inspection Extremity Narrative: No asymmetric edema no pitting edema negative Homans' sign bilaterally Neuro oriented x3 and CN's II-XII intact bilaterally Sensorium / Orientation: alert Psych Psych Narrative: Patient has a nervous/anxious affect Skin no rashes or lesions noted MDM MDM MDM Narrative Medical decision making narrative: To the ER tachycardic and tachypneic but satting in the mid 90s on room air. With her history of smoking and sudden onset wheeze I did feel this is most likely a COPD exacerbation. I discussed patient obtaining EKG chest x-ray influenza and COVID swabs as well as blood work containing a D-dimer to rule out other causes of her shortness of breath. Patient states she does not want all that performed and just wants treatment for her shortness of breath and an x-ray. The patient's x-ray revealed no acute findings and after oral steroids and treatment with albuterol and DuoNeb patient had improvement of her breath sounds as well as resolution of her work of breathing. Therefore at this time as patient is not hypoxic or requiring supplemental oxygen or in respiratory distress and has had improvement of symptoms she will be discharged symptomatic care and can follow-up with your family doctor on an outpatient basis for further testing Radiography Diagnostic Testing: Clinical Impression(s) from Imaging Studies Chest X-Ray 08/04/22 01:24 IMPRESSION: Normal x-ray examination of the chest. Electronically Signed: García Sena MD at 2:25 EST , Chest x-ray as interpreted by the emergency medicine physician reveals no acute infiltrate pneumothorax or pleural effusion Discharge Plan Triage Chief Complaint: Shortness of Breath ED Provider: Aiden Bryan Dx/Rx/DC Orders Clinical Impression: Acute exacerbation of chronic obstructive pulmonary disease, Tobacco abuse Instructions: COPD: Wheezing and Chest Tightness Prescriptions: New prednisone 20 mg tablet 40 mg PO DAILY 5 Days Qty: 10 0RF albuterol sulfate [Ventolin HFA] 90 mcg/actuation HFA aerosol inhaler 1 - 2 puff inhalation Q4H PRN PRN (Reason: Wheezing) Qty: 1 0RF No Action atorvastatin 20 MG tablet 20 mg PO QHS levothyroxine 75 MCG tablet 75 mcg PO DAILY ergocalciferol (vitamin D2) 50,000 UNIT capsule 50,000 unit PO Q7D Primary Care Provider: Kiana Hall Referrals: Kiana Hall, [Primary Care Provider] - Activity Restrictions/Additional Instructions: Please use the inhaler and steroids as directed to keep your inflammation and breathing under control and return to the ER should you have any further concerns Disposition Disposition: Home, Self Care Discharge Date/Time: 08/04/22 03:08
[2022-08-04] MEDS: Albuterol Sulfate 8 gm Inhaler (60 puffs) 2 PUFF INHALATION (02:59)
[2022-08-04 03:07] VITALS: BP 156/87; PULSE 82; RESP 20; O2SAT 96
== END 2022-08-04 03:08 | disposition home or self-care (01) ==
PROVIDERS: Emergency Provider Emergency Medicine; Visit Provider Emergency Medicine
DX: J44.1 Chronic obstructive pulmonary disease with (acute) exacerbation (principal); F17.210 Nicotine dependence, cigarettes, uncomplicated
CPT/HCPCS: 71046; 94640; 99252; 99282; G0463

== ENCOUNTER → 2022-11-09 | Outpatient (CLI) | payer MEDICARE, SELFPAY ==
[2022-11-09 08:17] LABS: Hematocrit 44.1 % (37-47); Hemoglobin 14.3 g/dL (12.0-15.0); Mean Corp Hgb Conc 32.4 g/dL (32-36); Mean Corpuscular Hgb 29.1 pg (27.0-32.0); Mean Corpuscular Volume 89.8 fL (81-99); Platelet Count 213 K/mm3 (150-450); RBC Distribution Width CV 12.9 % (11.6-14.6); Red Blood Count 4.91 M/mm3 (4.2-5.4); White Blood Count 11.9 K/mm3 (4.4-11.0)
[2022-11-09 08:48] LABS: Vitamin D,25 Hydroxy 65.5 ng/mL
[2022-11-09 09:02] LABS: ALB/GLOB Ratio 1.1 RATIO (0.9-2.4); AST(SGOT) 28 U/L (15-37); Alanine Aminotransfer ALT/SGPT 37 U/L (13-56); Albumin, Serum 3.8 g/dL (3.2-5.0); Alkaline Phosphatase 98 U/L (45-117); Anion Gap 5 (5-15); BUN 17 mg/dL (7-18); BUN/Creat Ratio 22.8 RATIO (10-20); Calcium,Total 9.2 mg/dL (8.5-10.1); Chloride 104 mmol/L (98-107); Cholesterol 176 mg/dL (200); Creatinine, Serum 0.74 mg/dL (0.55-1.02); EST Glomerular Filtration Rate 83 mL/min (>60); Est Glom Filt Rate - Afr Amer 100 mL/min (>60); Globulin 3.4 g/dL (2.2-4.2); Glucose 129 mg/dL (74-106); High Density Lipoprotein 35 mg/dL; Potassium 4.1 mmol/L (3.5-5.1); Protein, Total 7.2 g/dL (6.4-8.2); Sodium Level 135 mmol/L (136-145); Triglycerides 214 mg/dL; Very Low Density Lipoprotein 43 mg/dL (5-40)
== END | disposition home or self-care (01) ==
LOC: LAB 08:01
DX: E78.5 Hyperlipidemia, unspecified (principal); E03.9 Hypothyroidism, unspecified; E55.9 Vitamin D deficiency, unspecified
CPT/HCPCS: 36415; 80053; 80061; 82306; 84443; 85027

== ENCOUNTER → 2023-02-20 | Outpatient (CLI) | payer MEDICARE, SELFPAY ==
[2023-02-20 11:05] LABS: Hemoglobin A1c 6.3 % (3.8-5.6)
[2023-02-20 11:29] LABS: ALB/GLOB Ratio 1.2 RATIO (0.9-2.4); AST(SGOT) 37 U/L (15-37); Alanine Aminotransfer ALT/SGPT 64 U/L (13-56); Albumin, Serum 3.9 g/dL (3.2-5.0); Alkaline Phosphatase 89 U/L (45-117); Anion Gap 7 (5-15); BUN 13 mg/dL (7-18); BUN/Creat Ratio 15.6 RATIO (10-20); Calcium,Total 9.3 mg/dL (8.5-10.1); Chloride 106 mmol/L (98-107); Creatinine, Serum 0.83 mg/dL (0.55-1.02); EST Glomerular Filtration Rate 73 mL/min (>60); Est Glom Filt Rate - Afr Amer 88 mL/min (>60); Free T3 2.8 pg/mL (2.18-3.98); Globulin 3.3 g/dL (2.2-4.2); Glucose 116 mg/dL (74-106); Protein, Total 7.2 g/dL (6.4-8.2); Sodium Level 139 mmol/L (136-145); T4 Free Direct 1.19 ng/dL (0.76-1.46); Thyroid Stim Hormone (TSH) 1.59 uIU/mL (0.358-3.74)
== END | disposition home or self-care (01) ==
LOC: LAB 10:29
DX: E03.9 Hypothyroidism, unspecified (principal); E78.5 Hyperlipidemia, unspecified; R73.9 Hyperglycemia, unspecified
CPT/HCPCS: 36415; 80053; 83036; 84439; 84443; 84481

== ENCOUNTER → 2023-03-19 | Outpatient (CLI) | payer MEDICARE, SELFPAY ==
--- NOTE | 2023-03-19 07:34 | BI_ITS ---
MAMMOGRAPHY - BILATERAL SCREENING REASON FOR EXAM: Female, 67 years old. Routine annual screening examination. PERTINENT HISTORY: Non-contributory. TECHNIQUE: Digital bilateral breast saba (3D mammographic acquisition) in the CC and MLO projections. 2-D mediolateral oblique (MLO) and craniocaudad (CC) views of both breasts were obtained. CAD: Full Field Digital Mammography with Computer Added Detection was performed. COMPARISON: Mammogram from 03/03/2022, 03/01/2021, 02/13/2020. FINDINGS: Breast Composition: There are scattered areas of fibroglandular density. There are no dominant masses or suspicious calcifications. Stable benign-appearing bilateral axillary lymph nodes. No other significant abnormalities are identified. There has been no significant change since the prior study. BI/SCRN MAMM (CAD)W/SABA BILAT IMPRESSION: Stable bilateral screening mammogram. Yearly follow-up mammogram recommended. (A) ASSESSMENT CATEGORY: BIRADS Category 2: Benign. A letter regarding these results will be sent to the patient by the facility within 30 days. Approximately 10% of breast cancers are not detected by mammography. A normal mammogram should not delay biopsy of a clinically suspicious abnormality. Electronically Signed: Ortega Leiva DO at 9:51 EDT ,
== END | disposition home or self-care (01) ==
LOC: OPBI 07:33
DX: Z12.31 Encounter for screening mammogram for malignant neoplasm of breast (principal)
CPT/HCPCS: 77063; 77067

== ENCOUNTER → 2023-08-14 | Outpatient (CLI) | payer MEDICARE, SELFPAY ==
[2023-08-14 10:20] LABS: Hematocrit 47.1 % (37-47); Hemoglobin 15.3 g/dL (12.0-15.0); Mean Corp Hgb Conc 32.5 g/dL (32-36); Mean Corpuscular Hgb 29.3 pg (27.0-32.0); Mean Corpuscular Volume 90.2 fL (81-99); Mean Platelet Vol. 11.6 fl (6.2-12.0); Platelet Count 231 K/mm3 (150-450); RBC Distribution Width CV 13.2 % (11.6-14.6); RBC Distribution Width SD 43.4 fl (35.1-43.9); Red Blood Count 5.22 M/mm3 (4.2-5.4); White Blood Count 12.5 K/mm3 (4.4-11.0)
[2023-08-14 10:52] LABS: Vitamin D,25 Hydroxy 79.2 ng/mL
[2023-08-14 11:09] LABS: Hemoglobin A1c 6.2 % (3.8-5.6)
[2023-08-14 11:13] LABS: ALB/GLOB Ratio 1.1 RATIO (0.9-2.4); AST(SGOT) 36 U/L (15-37); Alanine Aminotransfer ALT/SGPT 63 U/L (13-56); Albumin, Serum 3.9 g/dL (3.2-5.0); Alkaline Phosphatase 87 U/L (45-117); Anion Gap 8 (5-15); BUN 16 mg/dL (7-18); BUN/Creat Ratio 21.3 RATIO (10-20); Calcium,Total 9.6 mg/dL (8.5-10.1); Chloride 103 mmol/L (98-107); Cholesterol 177 mg/dL (200); Creatinine, Serum 0.75 mg/dL (0.55-1.02); EST Glomerular Filtration Rate 82 mL/min (>60); Est Glom Filt Rate - Afr Amer 99 mL/min (>60); Globulin 3.6 g/dL (2.2-4.2); Glucose 114 mg/dL (74-106); High Density Lipoprotein 36 mg/dL; Potassium 4.1 mmol/L (3.5-5.1); Protein, Total 7.5 g/dL (6.4-8.2); Sodium Level 138 mmol/L (136-145); Thyroid Stim Hormone (TSH) 4.09 uIU/mL (0.358-3.74); Triglycerides 218 mg/dL; Very Low Density Lipoprotein 44 mg/dL (5-40)
== END | disposition home or self-care (01) ==
LOC: LAB 09:11
DX: E78.5 Hyperlipidemia, unspecified (principal); E03.9 Hypothyroidism, unspecified; R73.9 Hyperglycemia, unspecified; E55.9 Vitamin D deficiency, unspecified
CPT/HCPCS: 36415; 80053; 80061; 82306; 83036; 84443; 85027

== ENCOUNTER → 2024-04-21 | Outpatient (CLI) | payer MEDICARE, SELFPAY ==
[2024-04-21 15:31] LABS: Absolute Lymphocyte Count 2.75 X10^3/uL (0.83-4.51); Absolute Neutrophil Count 9.2 X10^3/uL (2.0-7.7); Basophil# 0.06 X10^3/uL; Basophil% 0.5 % (0-1); Eosinophil# 0.39 X10^3/uL; Hematocrit 48.4 % (37-47); Hemoglobin 15.4 g/dL (12.0-15.0); Lymphocyte # 2.75 X10^3/ul (0.83-4.51); Lymphocyte % 20.9 % (19-41); Mean Corp Hgb Conc 31.8 g/dL (32-36); Mean Corpuscular Volume 91.1 fL (81-99); Mean Platelet Vol. 11.8 fl (6.2-12.0); Monocyte# 0.78 X10^3/uL; Monocyte% 5.9 % (0-10); NRBC Flagged by Analyzer 0 % (0-5); Neutrophil # 9.15 X10^3/uL (2.7-7.7); Neutrophil % 69.3 % (47-70); Platelet Count 231 K/mm3 (150-450); RBC Distribution Width CV 12.9 % (11.6-14.6); RBC Distribution Width SD 42.8 fl (35.1-43.9); Red Blood Count 5.31 M/mm3 (4.2-5.4); White Blood Count 13.2 K/mm3 (4.4-11.0)
[2024-04-21 15:54] LABS: Vitamin D,25 Hydroxy 58.9 ng/mL
[2024-04-21 16:10] LABS: ALB/GLOB Ratio 1.1 RATIO (0.9-2.4); AST(SGOT) 34 U/L (15-37); Alanine Aminotransfer ALT/SGPT 50 U/L (13-56); Albumin, Serum 3.9 g/dL (3.2-5.0); Alkaline Phosphatase 94 U/L (45-117); Anion Gap 7 (5-15); BUN 16 mg/dL (7-18); BUN/Creat Ratio 20.8 RATIO (10-20); Chloride 106 mmol/L (98-107); Cholesterol 171 mg/dL (200); Creatinine, Serum 0.77 mg/dL (0.55-1.02); EST Glomerular Filtration Rate 79 mL/min (>60); Est Glom Filt Rate - Afr Amer 96 mL/min (>60); Globulin 3.5 g/dL (2.2-4.2); Glucose 111 mg/dL (74-106); High Density Lipoprotein 34 mg/dL; Potassium 4.1 mmol/L (3.5-5.1); Protein, Total 7.4 g/dL (6.4-8.2); Sodium Level 137 mmol/L (136-145); Thyroid Stim Hormone (TSH) 0.989 uIU/mL (0.358-3.740); Triglycerides 290 mg/dL; Very Low Density Lipoprotein 58 mg/dL (5-40)
== END | disposition home or self-care (01) ==
PROVIDERS: PCP Family Medicine; Visit Provider Family Medicine
DX: E78.00 Pure hypercholesterolemia, unspecified (principal); E55.9 Vitamin D deficiency, unspecified; R53.83 Other fatigue
CPT/HCPCS: 36415; 80053; 80061; 82306; 84443; 85025

== ENCOUNTER → 2024-04-24 | Outpatient (CLI) | payer MEDICARE, SELFPAY ==
--- NOTE | 2024-04-24 08:22 | BI_ITS ---
MAMMOGRAPHY - BILATERAL SCREENING REASON FOR EXAM: Female, 68 years old. Routine annual screening examination. PERTINENT HISTORY: Non-contributory. TECHNIQUE: Digital bilateral breast saba (3D mammographic acquisition) in the CC and MLO projections. 2-D mediolateral oblique (MLO) and craniocaudad (CC) views of both breasts were obtained. CAD: Full Field Digital Mammography with Computer Added Detection was performed. COMPARISON: Comparison is made with prior study dated March 19, 2023 and March 03, 2022. FINDINGS: Breast Composition: The breasts are almost entirely fatty. There are no dominant masses or suspicious calcifications. Stable benign-appearing bilateral axillary lymph nodes. No other significant abnormalities are identified. There has been no significant change since the prior study. BI/SCRN MAMM (CAD)W/SABA BILAT IMPRESSION: Stable bilateral screening mammogram. Yearly follow-up mammogram recommended. (A) ASSESSMENT CATEGORY: BIRADS Category 2: Benign. A letter regarding these results will be sent to the patient by the facility within 30 days. Approximately 10% of breast cancers are not detected by mammography. A normal mammogram should not delay biopsy of a clinically suspicious abnormality. [id number] Electronically Signed: Dony Olivo MD at 9:19 EDT ,
== END | disposition home or self-care (01) ==
LOC: OPBI 08:22
PROVIDERS: PCP Family Medicine; Referring Provider Family Medicine; Visit Provider Family Medicine
DX: Z12.31 Encounter for screening mammogram for malignant neoplasm of breast (principal)
CPT/HCPCS: 77063; 77067

== ENCOUNTER 2024-08-10 23:17 | Emergency (ER) | payer MEDICARE, SELFPAY ==
[2024-08-10 23:18] VITALS: BP 131/94; PULSE 110; RESP 20; TEMP 36.6; O2SAT 97; BMI 31.4
--- NOTE | 2024-08-10 23:25 | EDS_ITS ---
HPI History of Present Illness Chief Complaint: Flank Pain [facility] Medical History COPD (chronic obstructive pulmonary disease) Home Medications ?Medication ?Instructions ?Recorded ?Last Taken ?Type atorvastatin 20 mg tablet 20 mg PO QHS 06/23/19 Unknown History ergocalciferol (vitamin D2) 1,250 50,000 unit PO Q7D 06/23/19 Unknown History mcg (50,000 unit) capsule levothyroxine 75 mcg tablet 75 mcg PO DAILY 06/23/19 06/27/19 04:15 History albuterol sulfate 90 mcg/actuation 1 - 2 puff inhalation Q4H PRN PRN 08/04/22 Unknown Rx aerosol inhaler (Ventolin HFA) Wheezing #1 device prednisone 20 mg tablet 40 mg (2 x 20 mg) PO DAILY 5 days 08/04/22 Unknown Rx #10 tabs ondansetron 4 mg disintegrating 4 mg PO Q8H PRN PRN Nausea #10 tabs 08/11/24 Unknown Rx tablet Allergy/AdvReac Type Severity Reaction Status Date / Time No Known Allergies Allergy Verified 08/10/24 23:18 Family History no significant family his Surgical History H/O: hysterectomy Total knee replacement status Social History Smoking Status: Current every day smoker tobacco type: cigarettes EXAM Physical Exam Const Vital Signs: 08/10/24 23:18 08/11/24 01:18 08/11/24 02:49 Temperature 98 F 97.1 F L Temperature Source Temporal Pulse Rate 110 H 108 H 110 H Respiratory Rate 20 H 16 20 H Blood Pressure 131/94 H 119/78 117/93 H Blood Pressure Mean 106 91 101 Pulse Ox 97 96 95 Oxygen Delivery Method Room Air Room Air MDM MDM MDM Narrative Medical decision making narrative: HISTORY OF PRESENT ILLNESS: 68-year-old female presents with right flank pain and concern for constipation. Patient notes she has not had a bowel for 2 days. She further states she felt right flank pain on Sunday (08/08/2024). States she is severe right side abdominal pain. She notes this occurred after a cough. Denies any fall or other trauma. Denies any association with food. Denies history of cholecystectomy. Denies vaginal bleeding or discharge. Denies urinary frequency. Denies diarrhea. States she usually has a bowel movement every 1 to 2 days. She knows she has not had a bowel movement last 2 days in association with pain. Denies history of kidney stones. Denies any family or personal history of connective tissue diseases. Denies family or personal history of aortic aneurysms. No she is currently on prednisone azithromycin for recent upper respiratory tract infection. REVIEW OF SYSTEMS: Pertinent positives: Flank pain, constipation, nausea Pertinent negatives: Vomiting, urinary frequency or urgency PHYSICAL EXAM: Nursing triage notes reviewed, Vital signs reviewed Constitutional: please see mdm HENT: MMM Eyes: Pupils equal round and reactive to light, Extraocular muscles intact Neck: No stridor, no JVD, full neck ROM Lungs: Clear to auscultation, No wheezing or rales. No increased work of breathing, no conversational dyspnea, no accessory muscle use, no nasal flaring. No respiratory distress noted Heart: Regular rate and rhythm, No murmurs, No rubs and No gallops, 2+ distal pulses (radial, femoral, posterior tibial) in all extremities Abdomen: Soft, there is no tenderness, rigidity, rebound or guarding, no obvious peritoneal signs, no palpable pulsatile abdominal masses, no auscultated abdominal bruit : No CVAT Extremities: No edema Neuro: No new focal neurological deficits, cranial nerves II through XII intact, 5/5 strength in all present extremities. Intact sensation to light touch in all present extremities, 2+ reflexes bilateral patella tendons. Skin: No rash or lesions noted MEDICAL DECISION MAKING: Chief Complaint: Flank pain, constipation External records reviewed: Reviewed prior imaging studies Factors affecting care: Hyperlipidemia, hypothyroidism Social determinants of health: none History obtained from others: none Consults: none [facility] Narrative: The patient was initially tachycardic rate of 110 otherwise afebrile and nontoxic-appearing. Exam with mid abdominal TTP. o peritoneal signs. I considered the following differential diagnosis: Nephrolithiasis, UTI, pyelonephritis, AAA, small bowel obstruction, musculoskeletal pain I obtained a broad lab and imaging workup to further elucidate the etiology the patient's complaints. I initially treated the patient with 15 mg IV Toradol, 4 mg IV morphine, 4 mg of IV Zofran as well as 1 L normal saline ALL IMAGES (IF OBTAINED) HAVE BEEN PERSONALLY REVIEWED AND INTERPRETED BY MYSELF. EKG with normal sinus rhythm, normal axis, normal intervals, no STEMI CBC with leukocytosis suggestive of systemic inflammation (of note patient on prednisone is likely secondary to steroid), noted elevated hemoglobin hematocrit distress of hemoconcentration and dehydration, no thrombocytopenia BMP without evidence of significant electrolyte abnormalities, no anion gap, no acute kidney injury. LFTs show no evidence of hepatobiliary pathology. Urinalysis shows no evidence of urinary inflammation suggestive of UTI CT scan of the abdomen pelvis showed no evidence of obvious acute surgical intra-abdominal pathology, no AAA The synthesis of the patient's history, physical exam, labs images suggest no acute life-threatening etiology despite having elevated white blood cell count which is suggestive of systemic inflammation this is a nonspecific finding there is no concomitant intra-abdominal pathology identified on CT scan as such I do not suspect the patient is suffering from a life-threatening etiology. Upon reassessment repeat abdominal exam showed no peritoneal signs. Patient is appropriate for discharge home. Gave strict return precautions. Gave home treatment instructions as well. The patient and/or family, caregivers express understanding. The patient and/or family, caregivers agrees with the plan. Shared decision making: I will have a discussion with the patient and or visitors regarding risk/benefits of further testing or admission. They will be made aware of of the risk/benefits inherent in this decision they will be given the opportunity to voice understanding. Total critical care time today provided was at least 0 minutes. This excludes separately billable procedures. Critical care time (if documented) is secondary to the patient having high probability of clinically significant/life threatening deterioration in the patient's condition which required my urgent intervention. Impression: 1. Acute flank pain 2. Constipation Dispo: Discharge home This note was generated with [employer] dictation software. It may contain incorrect words, spelling, and punctuation that were not noted in review of the chart prior to signing. Lab Data Labs: Laboratory Results - last 24 hr 08/10/24 08/10/24 23:31 23:33 WBC 23.0 H RBC 5.17 Hgb 15.1 H Hct 47.4 H MCV 91.7 MCH 29.2 MCHC 31.9 L RDW Std Deviation 44.8 H RDW Coeff of Michelle 13.2 Plt Count 300 MPV 11.3 Immature Gran % (Auto) 1.300 H Neut % (Auto) 60.4 Lymph % (Auto) 29.3 [place] % (Auto) 7.4 Eos % (Auto) 1.2 Baso % (Auto) 0.4 Absolute Neuts (auto) 13.9 H Absolute Lymphs (auto) 6.73 H Nucleated RBC % 0 Differential Comment SCANNED Diff Path Review November Sodium 139 Potassium 3.8 Chloride 105 Carbon Dioxide 30.0 Anion Gap 4 L BUN 19 H Creatinine 0.71 Estim Creat Clear Calc 76.33 Est GFR (MDRD) Af Amer 105 Est GFR (MDRD) Non-Af 87 BUN/Creatinine Ratio 26.7 H Glucose 133 H Calcium 9.5 Total Bilirubin 0.20 Direct Bilirubin 0.09 AST 31 ALT 59 H Alkaline Phosphatase 89 Total Protein 7.2 Albumin 3.6 Globulin 3.6 Lipase 52 Urine Color Yellow Urine Clarity Cloudy Urine pH 5.0 Ur Specific [place] 1.025 Urine Protein 15 H Urine Glucose (UA) Normal Urine Ketones Negative Urine Occult Blood 10 H Urine Nitrite Negative Urine Bilirubin Negative Urine Urobilinogen Normal Ur Leukocyte Esterase 100 H Urine RBC 0 SEEN Urine WBC 50-100 SEEN Ur Squamous Epith Cells 5-10 SEEN Calcium Oxalate Crystal 1+ Urine Bacteria 1+ Urine Mucus 1+ Radiography Diagnostic Testing: Clinical Impression(s) from Imaging Studies Abdomen/Pelvis CT 08/10/24 23:45 IMPRESSION: 1. No acute abnormality. 2. Fatty infiltration of the liver. 3. 1.5 cm and 1.3 cm indeterminate left adrenal gland nodules. Recommend follow-up with CT with dedicated adrenal protocol in one year. Electronically Signed: Billy Isaac DO at 1:36 EST , Discharge Plan Triage Chief Complaint: Flank Pain ED Provider: Clint Barrett Dx/Rx/DC Orders Instructions: Abdominal Pain Prescriptions: New ondansetron 4 mg tablet,disintegrating 4 mg PO Q8H PRN PRN (Reason: Nausea) Qty: 10 0RF No Action atorvastatin 20 MG tablet 20 mg PO QHS levothyroxine 75 MCG tablet 75 mcg PO DAILY ergocalciferol (vitamin D2) 50,000 UNIT capsule 50,000 unit PO Q7D prednisone 20 mg tablet 40 mg PO DAILY 5 Days Qty: 10 0RF albuterol sulfate [Ventolin HFA] 90 mcg/actuation HFA aerosol inhaler 1 - 2 puff inhalation Q4H PRN PRN (Reason: Wheezing) Qty: 1 0RF Primary Care Provider: Jeovanny Garcia Referrals: Jeovanny Garcia MD [Primary Care Provider] - Activity Restrictions/Additional Instructions: Thank you for trusting us with your care today! Your labs images were reassuring. They did not show signs of an acute life- threatening etiology. The only lab abnormality of note is your white blood cell count was elevated which is indicative of systemic inflammation. There is no sign of inflammatory condition in your abdomen in the area that you have pain to explain this finding. It may also be in response to you being in so much pain. Please take Tylenol (2 pills, 650 mg), ibuprofen (2 pills, 400 mg) every 6 hours as needed for pain and fever control. Please take Zofran as needed for nausea vomit control at home. Please return to the emergency department if your symptoms change or worsen. Please follow with your primary care physician for further outpatient evaluation and management. Print Language: Marshallese Disposition Disposition: Home, Self Care Discharge Date/Time: 08/11/24 02:56
--- NOTE | 2024-08-10 23:45 | CT_ITS ---
INDICATION: right sided abdominal pain EXAMINATION: CT Abdomen And Pelvis W/ Contrast Injection TECHNIQUE: Helically acquired images were obtained of the abdomen and pelvis with sagittal and coronal reconstructed images. Individualized dose optimization techniques were used for this CT. IV contrast dosage and agent: 100 mL of Isovue-370. Oral contrast: None. COMPARISON: None. FINDINGS: VESSELS: No abdominal aortic aneurysm or dissection. LIVER: No evidence of a mass. No intrahepatic or extrahepatic biliary duct dilation. Diffuse decreased attenuation of the liver. GALLBLADDER: No calcified stones. No evidence of cholecystitis. PANCREAS: No focal solid or cystic mass. No evidence of pancreatitis. SPLEEN: Normal. ADRENAL GLANDS: 1.5 cm and 1.3 cm indeterminate left adrenal gland nodules. KIDNEYS AND URETERS: Left renal stones. Simple left renal cyst with no follow-up recommended. No hydronephrosis or hydroureter. No significant asymmetric perinephric stranding. URINARY BLADDER: Unremarkable. BOWEL: Diverticulosis with no evidence of diverticulitis. Appendix appears normal. No evidence of bowel obstruction. REPRODUCTIVE ORGANS: No evidence of a pelvic mass. PERITONEUM: No intraabdominal free fluid or free air. LYMPH NODES: No pathologically enlarged mesenteric or retroperitoneal lymph nodes. ABDOMINAL WALL: No abdominal or pelvic wall hernia. BONES: No acute abnormality. LOWER CHEST: Visualized lung bases are unremarkable. CT/Abdomen/Pelvis W IV Cont ONLY IMPRESSION: 1. No acute abnormality. 2. Fatty infiltration of the liver. 3. 1.5 cm and 1.3 cm indeterminate left adrenal gland nodules. Recommend follow-up with CT with dedicated adrenal protocol in one year. Electronically Signed: Billy Isaac DO at 1:36 EST ,
--- NOTE | 2024-08-10 23:45 | EKG12_ITS ---
Test Reason : FLANK PAIN Blood Pressure : */* mmHG Vent. Rate : 100 BPM Atrial Rate : 100 BPM P-R Int : 150 ms QRS Dur : 66 ms QT Int : 320 ms P-R-T Axes : 35 -8 42 degrees QTcB Int : 412 ms Normal sinus rhythm Normal ECG Confirmed by ELIANA JIMENES, NAVNEET ([id number]), senior technical editor JANIA PAGAN ([id number]) on 08/12/2024 9:20:34 AM Referred By: Confirmed By: NAVNEET MONROY MD
[2024-08-10 23:50] LABS: Red Blood Cells-Urine 0 SEEN /hpf (0-5)
[2024-08-10] MEDS: Ondansetron 4 MG/2 ML Vial IV (23:50)
[2024-08-10] MEDS: 0.9% Normal Saline (1000mL) 1,000 ML 999 ML IV (23:50)
[2024-08-10] MEDS: Ketorolac 15 MG/ML Vial IV (23:50)
[2024-08-10] MEDS: Morphine 4 MG/ML Syringe IV (23:50)
[2024-08-10 23:54] LABS: Color, Urine Yellow (Yellow); Glucose, Dipstick Normal (Normal); Ketone-Dipstick Negative (Negative); Leukocyte Esterase-Dipstick 100 /ul (Negative); Nitrite-Dipstick Negative (Negative); Occult Blood-Urine 10 /ul (Negative); Protein-Dipstick 15 mg/dl (Negative); Specific Gravity, Urine 1.025 (1.002-1.030); Urine Bilirubin Dipstick Negative (Negative); Urine Clarity Cloudy (Clear); Urine Urobilinogen Normal (Normal)
[2024-08-11 00:06] LABS: Absolute Lymphocyte Count 6.73 X10^3/uL (0.83-4.51); Absolute Neutrophil Count 13.9 X10^3/uL (2.0-7.7); Basophil# 0.09 X10^3/uL; Basophil% 0.4 % (0-1); Eosinophil# 0.27 X10^3/uL; Eosinophils% 1.2 % (0-5); Hematocrit 47.4 % (37-47); Hemoglobin 15.1 g/dL (12.0-15.0); Lymphocyte # 6.73 X10^3/ul (0.83-4.51); Lymphocyte % 29.3 % (19-41); Mean Corp Hgb Conc 31.9 g/dL (32-36); Mean Corpuscular Hgb 29.2 pg (27.0-32.0); Mean Corpuscular Volume 91.7 fL (81-99); Mean Platelet Vol. 11.3 fl (6.2-12.0); Monocyte% 7.4 % (0-10); NRBC Flagged by Analyzer 0 % (0-5); Neutrophil # 13.89 X10^3/uL (2.7-7.7); Neutrophil % 60.4 % (47-70); POSITIVE DIFFERENTIAL YES; Platelet Count 300 K/mm3 (150-450); RBC Distribution Width CV 13.2 % (11.6-14.6); RBC Distribution Width SD 44.8 fl (35.1-43.9); Red Blood Count 5.17 M/mm3 (4.2-5.4)
[2024-08-11 00:09] LABS: AST(SGOT) 31 U/L (15-37); Alanine Aminotransfer ALT/SGPT 59 U/L (13-56); Albumin, Serum 3.6 g/dL (3.2-5.0); Alkaline Phosphatase 89 U/L (45-117); Anion Gap 4 (5-15); BUN 19 mg/dL (7-18); BUN/Creat Ratio 26.7 RATIO (10-20); Bilirubin, Direct 0.09 mg/dL (0.00-0.30); Calcium,Total 9.5 mg/dL (8.5-10.1); Chloride 105 mmol/L (98-107); Creatinine, Serum 0.71 mg/dL (0.55-1.02); EST Glomerular Filtration Rate 87 mL/min (>60); Est Glom Filt Rate - Afr Amer 105 mL/min (>60); Estimated Creatinine Clearance 76.33 ml/min; Globulin 3.6 g/dL (2.2-4.2); Glucose 133 mg/dL (74-106); Lipase 52 U/L (13-75); Potassium 3.8 mmol/L (3.5-5.1); Protein, Total 7.2 g/dL (6.4-8.2); Sodium Level 139 mmol/L (136-145)
[2024-08-11 00:13] LABS: White Blood Cells 50-100 SEEN /hpf (0-5)
[2024-08-11 00:14] LABS: Bacteria 1+ /hpf (None Seen); Calcium Oxalate Crystals Ur 1+ /hpf (<or=2+); Mucous, Urine 1+ /hpf (<or=2+); Squamous Epithelial Cells - UA 5-10 SEEN /hpf (5-10)
[2024-08-11 00:15] LABS: Differential Indicated SCAN CRITERIA MET
[2024-08-11 01:16] LABS: Differential Comment SCANNED
[2024-08-11 01:18] VITALS: BP 119/78; PULSE 108; RESP 16; O2SAT 96
[2024-08-11 02:49] VITALS: BP 117/93; PULSE 110; RESP 20; TEMP 36.2; O2SAT 95
[2024-08-11 13:40] LABS: Pathologist Review Reviewed
== END 2024-08-11 02:56 | disposition home or self-care (01) ==
PROVIDERS: Emergency Provider Emergency Medicine; PCP Family Medicine; Visit Provider Emergency Medicine
DX: R10.9 Unspecified abdominal pain (principal); J44.9 Chronic obstructive pulmonary disease, unspecified; E78.5 Hyperlipidemia, unspecified; K59.00 Constipation, unspecified; E03.9 Hypothyroidism, unspecified; F17.210 Nicotine dependence, cigarettes, uncomplicated; Z90.49 Acquired absence of other specified parts of digestive tract; Z79.899 Other long term (current) drug therapy; Z79.890 Hormone replacement therapy

== ENCOUNTER → 2024-09-18 | Outpatient (CLI) | payer MEDICARE, SELFPAY ==
[2024-09-18 10:51] LABS: Hemoglobin 15.5 g/dL (12.0-15.0)
[2024-09-18 10:53] LABS: Absolute Lymphocyte Count 3.17 X10^3/uL (0.83-4.51); Absolute Neutrophil Count 8.6 X10^3/uL (2.0-7.7); Basophil# 0.06 X10^3/uL; Basophil% 0.5 % (0-1); Eosinophils% 2.3 % (0-5); Hematocrit 47.5 % (37-47); Hemoglobin 15.4 g/dL (12.0-15.0); Lymphocyte # 3.17 X10^3/ul (0.83-4.51); Lymphocyte % 24.3 % (19-41); Mean Corp Hgb Conc 32.4 g/dL (32-36); Mean Corpuscular Hgb 29.1 pg (27.0-32.0); Mean Corpuscular Volume 89.6 fL (81-99); Mean Platelet Vol. 11.6 fl (6.2-12.0); Monocyte# 0.79 X10^3/uL; Monocyte% 6.1 % (0-10); NRBC Flagged by Analyzer 0 % (0-5); Neutrophil # 8.63 X10^3/uL (2.7-7.7); Neutrophil % 66.2 % (47-70); Platelet Count 230 K/mm3 (150-450); RBC Distribution Width SD 42.9 fl (35.1-43.9)
[2024-09-18 11:23] LABS: ALB/GLOB Ratio 1.1 RATIO (0.9-2.4); AST(SGOT) 26 U/L (15-37); Alanine Aminotransfer ALT/SGPT 54 U/L (13-56); Albumin, Serum 3.9 g/dL (3.2-5.0); Alkaline Phosphatase 96 U/L (45-117); Anion Gap 7 (5-15); BUN 13 mg/dL (7-18); Calcium,Total 9.7 mg/dL (8.5-10.1); Chloride 105 mmol/L (98-107); Creatinine, Serum 0.72 mg/dL (0.55-1.02); EST Glomerular Filtration Rate 86 mL/min (>60); Est Glom Filt Rate - Afr Amer 104 mL/min (>60); Globulin 3.6 g/dL (2.2-4.2); Glucose 111 mg/dL (74-106); Lipase 44 U/L (73-393); Potassium 4.3 mmol/L (3.5-5.1); Protein, Total 7.5 g/dL (6.4-8.2); Sodium Level 138 mmol/L (136-145)
== END | disposition home or self-care (01) ==
LOC: LAB 09:52
PROVIDERS: PCP Family Medicine; Referring Provider Student in an Organized Health Care Education/Training Program; Visit Provider Student in an Organized Health Care Education/Training Program
DX: R10.9 Unspecified abdominal pain (principal); E78.5 Hyperlipidemia, unspecified
CPT/HCPCS: 36415; 80053; 83690; 85018; 85025

== ENCOUNTER → 2024-10-15 | Outpatient (CLI) | payer MEDICARE, SELFPAY | END | disposition home or self-care (01) | LOC: PSN 06:39 | PROVIDERS: PCP Family Medicine; Referring Provider Family Medicine; Visit Provider Family Medicine | DX: J44.9 Chronic obstructive pulmonary disease, unspecified (principal) | CPT/HCPCS: 94060; 94726; 94729 ==

== ENCOUNTER → 2025-02-20 | Outpatient (CLI) | payer MEDICARE, SELFPAY ==
--- NOTE | 2025-02-20 08:08 | CT_ITS ---
PROCEDURE: LOW DOSE CT LUNG SCREENING 02/20/2025 REASON FOR EXAM: PERSONAL HISTORY OF NICOTINE DEPENDENCE TECHNIQUE: LOW DOSE CT LUNG SCREENING Coronal and Sagittal reconstruction series were provided. One or more dose reduction techniques were used (e.g., Automated exposure control, adjustment of the mA and/or kV according to patient size, use of iterative reconstruction technique). REFERENCE LINK: [employer] Lung-RADS RADIATION DOSE SUMMARY: CTDlvol: 4 mGy DLP: 142 mGycm COMPARISON: No FINDINGS: Central airways are patent. There is lingular atelectasis. Otherwise well inflated lungs. Mild biapical scarring. Mild emphysema. No consolidation, effusion, or pneumothorax. On the left, series 2, image 48, 3 mm noncalcified upper lobe nodule. Image 66, 3 mm noncalcified upper lobe nodule. Image 103, there is an anterior spiculated upper lobe density, pleural-based, measuring approximately 6 x 9 mm, possibly a focus of airspace disease rather than a true lung nodule. On the right, no suspicious lung nodules. Unremarkable base of neck and axilla. Thoracic spine degeneration. Normal esophagus. Normal heart size. No acute vascular pathology. No acute abdominal wall findings. No acute upper abdominal findings. CT/Low Dose CT Lung Screening IMPRESSION: 9 mm spiculated left upper lobe density, nonspecific and not definitely a lung nodule/mass. Recommend three-month follow up imaging. Lung-RADS Category: 4A Other Significant Findings: Reading Location: [place] [id number]
== END | disposition home or self-care (01) ==
LOC: CT 08:06
PROVIDERS: PCP Family Medicine; Referring Provider Internal Medicine Pulmonary Disease; Visit Provider Internal Medicine Pulmonary Disease
DX: Z87.891 Personal history of nicotine dependence (principal)
CPT/HCPCS: 71271

== ENCOUNTER 2025-04-07 11:13 | Outpatient (CLI) | payer MEDICARE, SELFPAY ==
[2025-04-07 18:23] LABS: Cholesterol 179 mg/dL (<=200); Low Density Lipoprotein Calc. 108 mg/dL; Triglycerides 192 mg/dL; Very Low Density Lipoprotein 38 mg/dL (5-40); Vitamin D,25 Hydroxy 68.6 ng/mL (30-100); cholesterol:hdl ratio screen 5.46
== END 2025-04-07 23:59 | disposition home or self-care (01) ==
LOC: MFPLAB 11:13
PROVIDERS: PCP Family Medicine; Referring Provider Family Medicine; Visit Provider Family Medicine
DX: E78.5 Hyperlipidemia, unspecified (principal); E03.9 Hypothyroidism, unspecified; E55.9 Vitamin D deficiency, unspecified
CPT/HCPCS: 36415; 80061; 82306; 84443

== ENCOUNTER → 2025-04-23 | Outpatient (CLI) | payer MEDICARE, SELFPAY ==
[2025-04-23 18:06] LABS: Creatinine, Urine (random) 89.30 mg/dL (28.00-217.00); Microalbumin,Random Urine < 12.0 mg/L (<20 mg/L)
== END | disposition home or self-care (01) ==
LOC: LABSPEC 15:15
PROVIDERS: PCP Family Medicine; Visit Provider Family Medicine
DX: E11.9 Type 2 diabetes mellitus without complications (principal)
CPT/HCPCS: 82043; 82570

== ENCOUNTER → 2025-04-27 | Outpatient (CLI) | payer MEDICARE, SELFPAY ==
--- NOTE | 2025-04-27 11:53 | BI_ITS ---
EXAM: SCRN MAMM (CAD)W/SABA BILAT DATE: 04/27/2025 CLINICAL HISTORY: F, Age 69 y/o , SCREENING TECHNIQUE: Procedure Code: [id number] Modality: MG Procedure: SCRN MAMM (CAD)W/SABA BILAT COMPARISON: Prior exam(s) dated 04/24/2024, 03/19/2023, and 03/03/2022. FINDINGS: TISSUE DENSITY: The breasts are almost entirely fatty. Bilateral Breast Mammographic Findings: No significant masses, calcifications or other abnormalities are identified. Benign-appearing round microcalcifications are seen in both breasts. Benign-appearing intramammary lymph nodes are seen bilaterally. BI/SCRN MAMM (CAD)W/SABA BILAT IMPRESSION: Benign screening mammogram OVERALL FINAL ASSESSMENT BI-RADS 2: BENIGN RECOMMENDATION: Routine annual follow-up in 1 Year Additional Recommendation none A letter with findings and recommendations will be mailed to the patient. Reading Location: [id number]
--- NOTE | 2025-04-27 11:53 | BI_ITS ---
EXAM: SCRN MAMM (CAD)W/SABA BILAT DATE: 04/27/2025 CLINICAL HISTORY: F, Age 69 y/o , SCREENING TECHNIQUE: Procedure Code: [id number] Modality: MG Procedure: SCRN MAMM (CAD)W/SABA BILAT COMPARISON: Prior exam(s) dated 04/24/2024, 03/19/2023, and 03/03/2022. FINDINGS: TISSUE DENSITY: The breasts are almost entirely fatty. Bilateral Breast Mammographic Findings: No significant masses, calcifications or other abnormalities are identified. Benign-appearing round microcalcifications are seen in both breasts. Benign-appearing intramammary lymph nodes are seen bilaterally. BI/SCRN MAMM (CAD)W/SABA BILAT IMPRESSION: Benign screening mammogram OVERALL FINAL ASSESSMENT BI-RADS 2: BENIGN RECOMMENDATION: Routine annual follow-up in 1 Year Additional Recommendation none A letter with findings and recommendations will be mailed to the patient. Reading Location: [id number]
== END | disposition home or self-care (01) ==
LOC: OPBI 11:52
PROVIDERS: PCP Family Medicine; Referring Provider Family Medicine; Visit Provider Family Medicine
DX: Z12.31 Encounter for screening mammogram for malignant neoplasm of breast (principal)
CPT/HCPCS: 77063; 77067